=== PATIENT | female | born 1955 | race Caucasian/White ===

== ENCOUNTER 2018-06-13 10:33 | Emergency (ER) | payer OTHER ==
--- NOTE | 2018-06-13 10:54 | EDPHY ---
H & P Time Seen by Provider: 06/13/18 10:48 HPI/ROS: HPI Head injury. 63-year-old female by private vehicle. This patient reports that on May 28 she slipped on the ice, fell backwards and hit the back of her head. She denied any loss of consciousness at that time. She does not take anticoagulants or antiplatelet medications. She presents the emergency department complaining of continued intermittent headaches which she describes as occipital in nature and radiating to the front and achy in nature. She also reports that she has had some intermittent blurred vision. She has not been confused. Denies any neck pain. No loss of sensation or weakness in her extremities. No nausea or vomiting. ROS: Constitutional: No fever, no chills. No weakness. Eyes: No discharge. As above. ENT: No sore throat. No nasal congestion or rhinorrhea. Respiratory: No cough. No shortness of breath. Cardiac: No chest pain, no palpitations. Gastrointestinal: No abdominal pain, no vomiting, no diarrhea. Genitourinary: No hematuria. No dysuria or increased frequency with urination. Musculoskeletal: No back pain. No neck pain. No myalgias or arthralgias. Skin: No rashes. Neurological: As above. No focal weakness or altered sensation. Past medical history: Hypothyroid, diabetes, hypertension, psychiatric. Social history: Nonsmoker. No alcohol. Here by herself. Physical Exam: General Appearance: Alert, no distress. This patient is responding to questions appropriately and in full sentences. This patient appears well- hydrated and well-nourished. Head: Normocephalic atraumatic. Face: Facial bones are stable on palpation. Eyes: Pupils equal and round and reactive to light, no pallor or injection. No lid erythema or edema. No nystagmus. No photophobia. ENT, Mouth: Mucous membranes moist. Dentition is intact. No malocclusion of the jaw. No tongue lacerations or abrasions. Pharynx is clear. The bilateral nasal canals are clear. No septal hematoma. Respiratory: There are no retractions, lungs are clear to auscultation with good air movement bilaterally. Chest wall is stable to AP and lateral palpation. Cardiovascular: Regular rate and rhythm. No murmur. Gastrointestinal: Abdomen is soft and nontender, no masses, bowel sounds normal. Neurological: Motor sensory function is intact. Cranial nerves are normal. Cerebellar function intact. Skin: Warm and dry, no rashes. No lacerations, abrasions or contusions. Musculoskeletal: Neck is supple and nontender. The trachea is midline. No midline cervical, thoracic, lumbar or sacral tenderness on palpation. No flank tenderness on palpation. Extremities are symmetrical, full range of motion. All joints in the bilateral upper and bilateral lower extremities range without pain or impingement. No tenderness on palpation of the long bones in the bilateral upper and bilateral lower extremities. Psychiatric: No agitation. No depression. Database: EKG: Imaging: CT head without contrast: Negative. Results were discussed with staff radiologist Dr. Keysha Arroyo. Procedures: Emergency department course: Triage vital signs reviewed. After my initial evaluation she was sent for CT imaging of her head. 11:15 a.m., the patient was re-evaluated, repeat neurologic Assessment is nonfocal. She is currently asymptomatic. She denies any changes in vision. No headache currently. I discussed the results of her CT imaging. She does feel comfortable going home with family. I discussed follow-up with her primary care physician for further evaluation and management of a probable concussion syndrome. Head injury precautions and return to emergency department precautions have been discussed with her in detail. All of her questions were answered. She was discharged in good condition with family. Differential Diagnosis: The differential diagnosis on this patient includes but is not limited to concussion syndrome. Traumatic subarachnoid hemorrhage, subdural hematoma, epidural hematoma, cervical spine injury, other significant acute traumatic injury unlikely. This represents a partial list of diagnoses considered. These considerations are based on history, physical exam, past history, reassessment and diagnostic testing. Constitutional: Initial Vital Signs Temperature (C) 36.9 C 06/13/18 10:43 Heart Rate 91 06/13/18 10:43 Respiratory Rate 16 06/13/18 10:43 Blood Pressure 150/108 H 06/13/18 10:43 O2 Sat (%) 94 06/13/18 10:43 O2 Delivery Mode Room Air Allergies/Adverse Reactions: No Known Allergies Allergy (Verified 06/13/18 10:53) Home Medications: Medication Instructions Recorded Bupropion HCl 06/13/18 Clonidine 06/13/18 Dexilant 06/13/18 Emplerenone 06/13/18 Levothyroxine 06/13/18 Losartan Potassium 06/13/18 Metformin HCl 06/13/18 Metoprolol Tartrate 06/13/18 Mirtazapine 06/13/18 Proarchea 06/13/18 Medical Decision Making - Diagnostics Imaging Results: Imaging Impressions Head CT 06/13/18 10:51 Impression: Normal. Findings and recommendations discussed with Lebron Luna MD at 11: 10 AM hour, 06/13/2018. Final report concurs with initial preliminary interpretation. Departure - Departure Disposition: Home, Routine, Self-Care Clinical Impression: Head injury Condition: Good Instructions: Concussion (ED), Head Injury (ED) Additional Instructions: Read and follow provided instructions. Follow-up with your primary care physician on Saturday for re-evaluation as discussed. Take your medication as prescribed. Return to the emergency department for worsening headache, nausea and vomiting, confusion or other serious concerns. Referrals: JOSUE ZULUAGA [Primary Care Provider] - As per Instructions
[2018-06-13 11:37] VITALS: BP 143/98
== END 2018-06-13 11:39 | disposition home or self-care (01) ==
LOC: CED 10:33
DX: R51 Headache (principal); W00.0XXA Fall on same level due to ice and snow, initial encounter; Y92.480 Sidewalk as the place of occurrence of the external cause; I10 Essential (primary) hypertension; E11.9 Type 2 diabetes mellitus without complications; E03.9 Hypothyroidism, unspecified; Z79.4 Long term (current) use of insulin
CPT/HCPCS: 70450-PO; 99284-ER